=== PATIENT | female | born 1975 | race Caucasian/White ===

== ENCOUNTER 2017-03-15 20:18 | Emergency (ER) | payer OTHER ==
[~2017-03-15] VITALS: Ht 157.5 cm; Wt 108.4 kg
[2017-03-15 22:04] LABS: URINE BILIRUBIN NEGATIVE (Negative); URINE BLOOD NEGATIVE (Negative); URINE CLARITY CLEAR; URINE COLOR YELLOW; URINE GLUCOSE-RANDOM NEGATIVE (Negative); URINE KETONES TRACE (Negative); URINE LEUKOCYTES-REFLEX NEGATIVE (Negative); URINE PROTEIN NEGATIVE (Negative); URINE SPECIFIC GRAVITY 1.025 (1.005-1.030); URINE UROBILINOGEN 0.2 E.U./dl (0.2-1.0)
[2017-03-15 22:06] LABS: URINE NITRITE-REFLEX POSITIVE (Negative)
[2017-03-15] MEDS ORDERED: CIPROFLOXACIN500 M1 PO (22:07)
[2017-03-15 22:14] LABS: AMP/METHAMP POSITIVE (Negative); BARBITURATES Negative (Negative); BENZODIAZEPINES Negative (Negative); COCAINE Negative (Negative); METHADONE Negative (Negative); OPIATES Negative (Negative); PCP Negative (Negative); THC Negative (Negative)
[2017-03-15 22:23] LABS: MUCUS 0-3 Light strn/LPF (None Seen); SQUAMOUS >10 Many /LPF (0-3)
[2017-03-15 22:24] LABS: BACTERIA-REFLEX >30 Many /HPF (None Seen); CRYSTALS None Seen /LPF (None Seen); URINE WBC-REFLEX 0-5 Rare /HPF (0-5)
[2017-03-15 22:25] LABS: URINE RBC None Seen /HPF (0-2)
[2017-03-15 22:26] LABS: HYALINE CASTS 0-3 Few /LPF (None Seen)
[2017-03-15 22:40] VITALS: BP 102/63
== END 2017-03-15 22:40 ==
LOC: M.ERS 20:18
PROVIDERS: Personal Emergency Response Attendant
DX: N39.0 Urinary tract infection, site not specified (principal); M54.9 Dorsalgia, unspecified; Z91.018 Allergy to other foods; F17.200 Nicotine dependence, unspecified, uncomplicated